=== PATIENT | female | born 2000 ===

== ENCOUNTER 2020-01-12 16:40 | Emergency (ER) | payer SELFPAY ==
[~2020-01-12] VITALS: Ht 157.5 cm; Wt 58.0 kg
--- NOTE | 2020-01-12 18:20 | NUR ---
Patient/Caregiver given discharge instructions and they have confirmed that they understand the instructions. Patient ambulatory with steady gait. CMS checks remain intact. Pt. has the sling in place to her left arm.
[2020-01-12 18:24] VITALS: BP 137/92
== END 2020-01-12 18:26 | disposition home or self-care (01) ==
LOC: ED 18:24
DX: S50.11XA Contusion of right forearm, initial encounter (principal); W18.30XA Fall on same level, unspecified, initial encounter; Y93.89 Activity, other specified; Y92.410 Unspecified street and highway as the place of occurrence of the external cause; Y99.8 Other external cause status
CPT/HCPCS: 99284